=== PATIENT | male | born 1985 | race Caucasian/White ===

== ENCOUNTER 2021-06-05 14:47 | Emergency (ER) | payer BC, OTHER ==
[~2021-06-05] VITALS: Ht 170.2 cm; Wt 59.0 kg
[2021-06-05 14:56] VITALS: BP 114/78
[2021-06-05] MEDS ORDERED: PROMETH-CODEIN 65 ML PO ×2 (16:12→16:27)
[2021-06-05] MEDS ORDERED: PREDNISONE 20 M20 MG PO ×2 (16:12→16:27)
[2021-06-05] MEDS ORDERED: XOPENEX HFA15 GM INH ×2 (16:12→16:27)
== END 2021-06-05 16:36 | disposition home or self-care (01) ==
LOC: ER 14:47
DX: U07.1 COVID-19 (principal); J45.909 Unspecified asthma, uncomplicated; Z91.040 Latex allergy status

== ENCOUNTER 2021-06-09 11:03 | Inpatient (IN) | payer BC, OTHER ==
[~2021-06-09] VITALS: Ht 167.6 cm; Wt 64.9 kg
--- NOTE | ~2021-06-09 | HC ---
[facility] [place] [address] CONSULTATION Name: MONROE ORLANDO Room #: 357-P ADM IN M.R.#: [id number] Admission: 06/09/21 Attend Phys: Anurag Domínguez MD Discharge: Date of : 81 Report #: [id number] THIS REPORT FOR: cc: DOMINIQUE - Family physician unknown FAM - Family physician unknown Guy Scales MD ~ DATE OF SERVICE: 06/09/2021 HISTORY OF PRESENT ILLNESS: This 35-year-old male patient who was evaluated by me for speech difficulty. This patient was discussed with the emergency room provider and subsequently, I discussed the patient with Dr. Domínguez, who is going to be admitting physician. I saw this patient briefly because he was going for MRI. I will see him tomorrow and complete the consult. He gives a history that on Saturday, he started having speech difficulty. His speech difficulty is pretty unusual. It does not can fit into dysarthria or typical aphasia. He apparently was also having chest pain. REVIEW OF SYSTEMS: Negative for anxiety or depression in this patient. He says he has fatigue and myalgias and he was diagnosed COVID about 8 days ago. He does not believe he has become anxious because of that. He is on prednisone. He does not give any history suggestive of myasthenia in the past. He does not appear to be having any respiratory difficulty. That was his relevant 14-point review of system. PAST MEDICAL HISTORY: Positive for recent diagnosis of COVID. Rest of the history, I will take tomorrow. SOCIAL HISTORY: Indicated that he does chew tobacco. PHYSICAL EXAMINATION: When I examined him, he was talking, but very unusual talking, which was not typical of dysarthria or dysphasia or aphasia. He appeared to be oriented and I did not examine him because he was going for MRI. CT scan was unremarkable, so I have recommended an MRI. I reviewed that MRI and MRA and they are pretty much unremarkable. We did MRI instead of CT because contrast was already used to do the PE protocol. I had asked him to order ultrasound of the carotid, but I do not see an order and output from him. IMPRESSION: This patient has a very unusual type of talking. He denies any history of anxiety. I will check for myasthenia markers, but with his normal MRI, it is difficult to explain his speech difficulty. I will complete the consult tomorrow and talked to other health care provider tomorrow. By: 10 0036 Guy Scales MD /nt
[~2021-06-09 11:03] MED LIST: PREDNISONE 20 M20 MG PO; PROMETH-CODEIN 65 ML PO; XOPENEX HFA15 GM INH
[2021-06-09 11:11] VITALS: BP 109/69
[2021-06-09 12:55] LABS: ABSOLUTE NEUTROPHILS 3.4 thou/uL (1.4-8.2); BASOPHILS 0.3 % (0.0-2.0); EOSINOPHILS 0.6 % (0.0-3.0); HEMOGLOBIN 15.3 gm/dL (14.0-18.0); LYMPHOCYTES 19.2 % (24.0-44.0); MCH 28.8 pg (26.0-34.0); MCV 84.7 fL (80.0-100.0); MONOCYTES 14.7 % (1.0-8.0); PLATELET COUNT 188 thou/uL (150-400); POLYS 65.2 % (36.0-66.0); RBC 5.31 mil/uL (4.50-6.00); WBC 5.2 thou/uL (4.0-11.0)
[2021-06-09 13:04] LABS: ANION GAP 5 mmol/L (7-16); BUN 16 mg/dL (7-18); CALCIUM 8.7 mg/dL (8.5-10.1); CHLORIDE 103 mmol/L (98-107); CO2 30 mmol/L (21-32); GLUCOSE 86 mg/dL (74-106); POTASSIUM 4.3 mmol/L (3.5-5.1); SODIUM 138 mmol/L (136-145)
[2021-06-09 13:14] LABS: ALBUMIN 3.6 g/dL (3.4-5.0); SGOT 18 U/L (15-37); SGPT 20 U/L (30-65); TOTAL BILIRUBIN 0.4 mg/dL (0.2-1.0); TOTAL PROTEIN 7.4 g/dL (6.4-8.2); TROPONIN-I <0.06 ng/mL (<0.06)
[2021-06-09 16:52] VITALS: BP 109/69
[2021-06-09] MEDS ORDERED: PREDNISONE 20 M20 M1 PO (18:18)
[2021-06-09] MEDS ORDERED: PROMETHAZINE-C473 ML PO (18:18)
[2021-06-09 18:19] VITALS: BP 124/75
[2021-06-09 20:20] VITALS: BP 114/69
[2021-06-09 20:50] VITALS: BP 117/78
[2021-06-09] MEDS ORDERED: DORYX MPC120 MG PO (21:00)
[2021-06-09 23:47] LABS: APTT 27.9 Seconds (24.5-32.8); INR 0.94; PROTIME 10.3 Seconds (10.5-12.1)
[2021-06-10 00:10] VITALS: BP 113/67
[2021-06-10 04:35] VITALS: BP 112/61
[2021-06-10 09:12] LABS: ABSOLUTE NEUTROPHILS 3.3 thou/uL (1.4-8.2); BASOPHILS 0.2 % (0.0-2.0); HEMATOCRIT 42.2 % (42.0-52.0); HEMOGLOBIN 14.7 gm/dL (14.0-18.0); MCH 28.9 pg (26.0-34.0); MCHC 34.8 g/dL (28.0-37.0); PLATELET COUNT 207 thou/uL (150-400); POLYS 74.8 % (36.0-66.0); RBC 5.08 mil/uL (4.50-6.00); RDW 13.5 % (10.5-14.5); WBC 4.5 thou/uL (4.0-11.0)
[2021-06-10 09:15] LABS: CALCIUM 8.5 mg/dL (8.5-10.1); CREATININE 0.9 mg/dL (0.7-1.3); MAGNESIUM 2.3 mg/dL (1.8-2.4); POTASSIUM 4.8 mmol/L (3.5-5.1)
[2021-06-10 09:21] LABS: CHOLESTEROL 177 mg/dL (<200); HDL CHOLESTEROL 52 mg/dL (>40); LDL CHOLESTEROL 111 mg/dL (<100); TC:HDL 3.4 Ratio (Not establshd); TRIGLYCERIDE 71 mg/dL (<150); VLDL 14 mg/dL (<40)
--- NOTE | 2021-06-10 10:36 | EKG ---
[address] [employer] [place] [address] ELECTROCARDIOGRAM REPORT Name: MONROE ORLANDO Room #: 357-P ADM IN M.R.#: [id number] Admission: 06/09/21 Attend Phys: Anurag Domínguez MD Discharge: Date of : 81 Report #: [id number] [facility] ED Test Date: 2021-06-09 Test Time: 11:10:33 Pat Name: MONROE ORLANDO Department: Room: 357 Gender: M Materials Assistant: JCSONIA : 1985 Requested By: Naida Millard Order Number: [id number] MD: Skip Jean Measurements Intervals [place] Rate: 60 P: 42 SC: 154 QRS: 57 QRSD: 96 T: 30 QT: 398 QTc: 398 Interpretive Statements Sinus rhythm Normal tracing No previous ECG available for comparison Electronically Signed On 06-10-2021 10:36:30 CDT by Skip Jean [email or web address] <ELECTRONICALLY SIGNED> By: Skip Jean MD, [facility] 06/10/21 1036 1110 1110 Skip Jean MD, FACC /EPI
[2021-06-10 15:43] VITALS: BP 118/69
[2021-06-10 20:58] VITALS: BP 121/80
--- NOTE | 2021-06-11 05:02 | HC ---
[facility] [place] [address] CONSULTATION Name: MONROE ORLANDO Room #: 357- ADM IN M.R.#: [id number] Admission: 06/09/21 Attend Phys: Anurag Domínguez MD Discharge: Date of : 81 Report #: [id number] THIS REPORT FOR: cc: FAM - Family physician unknown FAM - Family physician unknown Edwar Aguilar MD ~ DATE OF SERVICE: 06/10/2021 INFECTIOUS DISEASE CONSULTATION ATTENDING PHYSICIAN: Dr. Domínguez. REASON FOR EVALUATION: COVID-19 infection as well as concomitant expressive aphasia. HISTORY OF PRESENT ILLNESS: Chart reviewed. The patient examined. This is a 35-year-old man with history of asthma, possibly schizoaffective disorder, who was diagnosed with COVID-19 infection roughly 10 days ago. He had experienced some mild dyspnea, myalgias. He was discharged from the ER on the , he returned on the with speech disturbances and difficulty speaking. Due to concerns about possible COVID relating to his illness, he was admitted. Imaging thus far has been unremarkable including CT of the head as well as MRI studies, no evidence of PE on chest CT. Did have peripheral ground glass opacities consistent with the COVID, but apparently he has not had any fevers. Denies chills. Appetite has been fair. Denies swallowing difficulties. It is notable he has been on doxycycline, treating chlamydia. UA is question of possible adverse drug effect. He is generally lucid. He is maintained on room air. ALLERGIES: LISTED TO LATEX AND MENTHOL. CURRENT MEDICATIONS: Include pantoprazole, zinc, cholecalciferol, ascorbic acid, enoxaparin, dexamethasone, ondansetron, doxycycline, aspirin. PAST MEDICAL HISTORY: As described above, asthma, schizoaffective disorder. SOCIAL HISTORY: History of illicit drug use, chews tobacco. No ethanol. FAMILY HISTORY: Noncontributory. REVIEW OF SYSTEMS: Otherwise, unremarkable. PHYSICAL EXAMINATION: GENERAL: He is alert, cooperative. Clearly he has some speech difficulties in terms of mechanics of speech. He seems to know what he wants to say but just having difficulty saying it. Appears reasonable well nourished. VITAL SIGNS: Temperature 97.9, pulse 51, respirations 16, blood pressure [facility] [address] [place] [address] CONSULTATION Name: MONROE ORLANDO Room #: [address] [place] [address] IN M.R.#: [id number] Admission: 06/09/21 Attend Phys: Anurag Domínguez MD Discharge: Date of : 81 Report #: [id number] 112/61. SKIN: Warm, dry, no rashes. HEENT: Again, normocephalic. Extraocular muscles intact. NECK: Supple. LUNGS: Generally clear to auscultation. HEART: Regular. I do not appreciate a murmur, borderline bradycardic. ABDOMEN: Soft, nontender, nondistended. EXTREMITIES: No cyanosis. GENITOURINARY AND RECTAL: Deferred. LABORATORY DATA: Most recent CBC: White count 4.5, H and H 14.7 and 42.2, platelets of 207. He is having lymphocytopenia. Electrolytes: Sodium 140, potassium 4.8, chloride 103, bicarbonate 26, anion gap of 11, BUN and creatinine 16 and 0.9, glucose of 105. MRI of the head is otherwise unremarkable. Additional studies: Again, the vasculature MRV was otherwise unremarkable as was the MRI of the [place]. CT as described above. Liver functions otherwise unremarkable. Albumin 3.6, total protein of 7.4. ASSESSMENT AND PLAN: COVID-19 infection, complicated by pneumonitis, although not appreciate respiratory failure; also has aphasia of unclear etiology, whether this is a direct result of a viral infection or perhaps secondary to adverse drug effect. I think it is reasonable given directed therapy case it is a virus. We will utilize some remdesivir and ivermectin in addition to the corticosteroids and vitamins. We will discontinue the doxycycline, perhaps repeat the chlamydia test. When he is better able to talk we get additional history in terms of any previous testing for HIV. <ELECTRONICALLY SIGNED> By: Edwar Aguilar MD 06/11/21 0502 0846 1514 Edwar Aguilar MD /nt
[2021-06-11 05:26] VITALS: BP 115/71
[2021-06-11 06:31] LABS: DIRECT BILIRUBIN < 0.1 mg/dL (<0.1-0.2); SGOT 15 U/L (15-37); SGPT 25 U/L (30-65); TOTAL BILIRUBIN 0.2 mg/dL (0.2-1.0); TOTAL PROTEIN 6.4 g/dL (6.4-8.2)
[2021-06-11 07:27] VITALS: BP 122/78
[2021-06-11 11:10] VITALS: BP 116/70
[2021-06-11 15:27] VITALS: BP 106/66
[2021-06-11 20:13] VITALS: BP 115/68
[2021-06-12 03:58] VITALS: BP 118/72
[2021-06-12 06:08] LABS: ALBUMIN 3.4 g/dL (3.4-5.0); DIRECT BILIRUBIN < 0.1 mg/dL (<0.1-0.2); SGOT 17 U/L (15-37); SGPT 24 U/L (30-65); TOTAL BILIRUBIN 0.2 mg/dL (0.2-1.0)
[2021-06-12 07:19] VITALS: BP 111/67
[2021-06-12 13:29] LABS: CSF CLARITY CLOUDY; VOLUME 11 ml
[2021-06-12 13:30] LABS: CSF RBC 612 /mm3
[2021-06-12 13:33] LABS: CSF GLUCOSE 60 mg/dL (40-70); CSF PROTEIN 52 mg/dL (15-45)
[2021-06-12 14:41] LABS: CSF LYMPHOCYTES 44 % (40-80); CSF POLYS 54 %
[2021-06-12 14:42] LABS: CSF WBC 17 /mm3 (0-10)
[2021-06-12 15:24] VITALS: BP 115/63
[2021-06-12 20:13] VITALS: BP 115/74
[2021-06-12 22:28] VITALS: BP 115/71
[2021-06-12 23:06] LABS: SYPHILIS AB Non Reactive (Non Reactive)
[2021-06-13 01:06] LABS: SERUM ALBUMIN 3.8 g/dL (4.0-5.0)
[2021-06-13 02:41] VITALS: BP 117/72
[2021-06-13 03:24] LABS: ALBUMIN 3.2 g/dL (3.4-5.0); CREATININE 0.9 mg/dL (0.7-1.3); DIRECT BILIRUBIN < 0.1 mg/dL (<0.1-0.2); SGOT 24 U/L (15-37); SGPT 45 U/L (30-65); TOTAL BILIRUBIN 0.2 mg/dL (0.2-1.0)
[2021-06-13 04:28] VITALS: BP 128/69
[2021-06-13 07:51] VITALS: BP 119/75
[2021-06-13 15:54] VITALS: BP 119/68
[2021-06-13 19:42] VITALS: BP 128/76
[2021-06-14 03:29] LABS: ALBUMIN 3.1 g/dL (3.4-5.0); DIRECT BILIRUBIN < 0.1 mg/dL (<0.1-0.2); SGOT 25 U/L (15-37); SGPT 47 U/L (30-65); TOTAL BILIRUBIN 0.2 mg/dL (0.2-1.0); TOTAL PROTEIN 6.3 g/dL (6.4-8.2)
[2021-06-14 04:20] VITALS: BP 120/70
[2021-06-14 07:31] VITALS: BP 116/76
[2021-06-14 08:19] VITALS: BP 128/66
[2021-06-14 15:21] VITALS: BP 108/61
[2021-06-14 20:00] VITALS: BP 115/66
[2021-06-15 04:59] VITALS: BP 98/59
[2021-06-15 07:10] VITALS: BP 114/58
[2021-06-15 09:08] LABS: HSV 1 DNA Negative (Negative); HSV 2 DNA Negative (Negative)
[2021-06-15 09:32] LABS: HEMATOCRIT 42.4 % (42.0-52.0); HEMOGLOBIN 14.6 gm/dL (14.0-18.0); MCH 28.5 pg (26.0-34.0); MCHC 34.5 g/dL (28.0-37.0); MCV 82.7 fL (80.0-100.0); RBC 5.13 mil/uL (4.50-6.00); RDW 13.5 % (10.5-14.5); WBC 6.8 thou/uL (4.0-11.0)
[2021-06-15 09:45] LABS: CALCIUM 8.6 mg/dL (8.5-10.1); CREATININE 1.1 mg/dL (0.7-1.3)
[2021-06-15 11:09] LABS: CSF IgG 3.2 mg/dL (0.0-10.3)
[2021-06-15 19:28] VITALS: BP 116/62
[2021-06-16 02:41] LABS: HEMOGLOBIN 13.4 gm/dL (14.0-18.0); MCH 28.2 pg (26.0-34.0); MCHC 34.3 g/dL (28.0-37.0); MCV 82.2 fL (80.0-100.0); RBC 4.74 mil/uL (4.50-6.00); RDW 13.4 % (10.5-14.5); WBC 17.7 thou/uL (4.0-11.0)
[2021-06-16 02:50] LABS: CALCIUM 7.9 mg/dL (8.5-10.1); POTASSIUM 4.1 mmol/L (3.5-5.1)
[2021-06-16 05:00] VITALS: BP 106/62
[2021-06-16 07:56] VITALS: BP 119/75
[2021-06-16 10:40] LABS: HSV PCR SOURCE CSF
[2021-06-16] MEDS ORDERED: VITAMINC500 PO (13:55)
[2021-06-16] MEDS ORDERED: NEURONTIN 300M300 M2 PO (13:55)
[2021-06-16] MEDS ORDERED: VITAMIN D325 MC1 PO (13:55)
[2021-06-16] MEDS ORDERED: PREDNISONE 10 M10 M1 PO (13:55)
[2021-06-16] MEDS ORDERED: WORK RELEASE (13:57)
[2021-06-16 14:08] VITALS: BP 119/75
[2021-06-16 14:45] VITALS: BP 119/75
[2021-06-16 14:46] VITALS: BP 119/75
== END 2021-06-16 14:52 | disposition home or self-care (01) | DRG 177 ==
LOC: ER 11:03 → 3W 16:41 → EROBS 16:41 → 3W 18:35
PROVIDERS: Nurse Practitioner; Nurse Practitioner Family; Psychiatry & Neurology Neuromuscular Medicine; Specialist; ADMIT Internal Medicine; ATTEND Internal Medicine
PROC: XW033E5 Introduction of Remdesivir Anti-infective into Peripheral Vein, Percutaneous Approach, New Technology Group 5 (ICD-10-PCS; principal; 2021-06-10)
PROC: B01B1ZZ Fluoroscopy of Spinal Cord using Low Osmolar Contrast (ICD-10-PCS; 2021-06-12)
PROC: 009U3ZX Drainage of Spinal Canal, Percutaneous Approach, Diagnostic (ICD-10-PCS; 2021-06-12)
DX: U07.1 COVID-19 (principal); J12.82 Pneumonia due to coronavirus disease 2019; R47.01 Aphasia; Z91.040 Latex allergy status; J45.909 Unspecified asthma, uncomplicated; Z88.8 Allergy status to other drugs, medicaments and biological substances
CPT/HCPCS: 10879; 62110; 62900

== ENCOUNTER 2021-07-02 17:04 | Inpatient (IN) | payer BC, OTHER ==
[~2021-07-02] VITALS: Ht 170.2 cm; Wt 65.8 kg
[~2021-07-02 17:04] MED LIST changes: +DORYX MPC120 MG PO; +NEURONTIN 300M300 M2 PO; +PREDNISONE 10 M10 M1 PO; +PREDNISONE 20 M20 M1 PO; +PROMETHAZINE-C473 ML PO; +VITAMIN D325 MC1 PO; +VITAMINC500 PO; +WORK RELEASE
[2021-07-02 17:06] VITALS: BP 129/60
[2021-07-02 17:25] LABS: BASOPHILS 0.7 % (0.0-2.0); EOSINOPHILS 3.7 % (0.0-3.0); HEMATOCRIT 43.2 % (42.0-52.0); HEMOGLOBIN 14.9 gm/dL (14.0-18.0); LYMPHOCYTES 29.6 % (24.0-44.0); MCH 29.1 pg (26.0-34.0); MCHC 34.5 g/dL (28.0-37.0); MCV 84.3 fL (80.0-100.0); MONOCYTES 13.1 % (1.0-8.0); PLATELET COUNT 197 thou/uL (150-400); POLYS 52.9 % (36.0-66.0); RBC 5.13 mil/uL (4.50-6.00); RDW 13.8 % (10.5-14.5); WBC 5.6 thou/uL (4.0-11.0)
[2021-07-02 17:30] LABS: CREATININE 1.2 mg/dL (0.7-1.3); POTASSIUM 3.8 mmol/L (3.5-5.1)
[2021-07-02 19:06] LABS: URINE BILIRUBIN NEGATIVE (Negative); URINE BLOOD NEGATIVE (Negative); URINE CLARITY CLEAR; URINE COLOR YELLOW; URINE GLUCOSE-RANDOM* NEGATIVE (Negative); URINE KETONES NEGATIVE (Negative); URINE LEUKOCYTES-REFLEX NEGATIVE (Negative); URINE NITRITE-REFLEX NEGATIVE (Negative); URINE PROTEIN (DIPSTICK) NEGATIVE (Negative); URINE SPECIFIC GRAVITY >= 1.030 (1.005-1.035); URINE UROBILINOGEN 0.2 E.U./dl (0.2-1.0)
[2021-07-02 19:10] LABS: AMP/METHAMP Negative (Negative); BARBITURATES Negative (Negative); BENZODIAZEPINES Negative (Negative); COCAINE Negative (Negative); METHADONE Negative (Negative); OPIATES Negative (Negative); PCP Negative (Negative)
--- NOTE | 2021-07-02 20:08 | NUR ---
ER GSE MECHANIC TALKED WITH DR ELAM, SHE IS AWARE OF PT AND ADMISSION
[2021-07-02 23:34] VITALS: BP 114/61
[2021-07-03 00:03] VITALS: BP 126/67
[2021-07-03 04:24] VITALS: BP 112/54
--- NOTE | 2021-07-03 05:21 | NUR ---
PT ARRIVED FROM ER TO ROOM 214, PT BROUGHT IN BY FAMILY, WITH SLURRED SPEECH AND LEFT SIDED WEAKNESS THAT HAS RESOLVED, VSS, NO C.O PAIN, WILL CON'T TO MONITOR PER PPOC.
--- NOTE | 2021-07-03 07:27 | EKG ---
[address] [place] [address] ELECTROCARDIOGRAM REPORT Name: MONROE ORLANDO Room #: 214- ADM IN M.R.#: [id number] Admission: 07/02/21 Attend Phys: Jeremi Castañeda MD Discharge: Date of : 81 Report #: [id number] [facility] ED Test Date: 2021-07-02 Test Time: 17:08:41 Pat Name: MONROE ORLANDO Department: Room: 214 Gender: M Labor Crew Supervisor: Char [place] : 1985 Requested By: Filemon Gutierrez Order Number: [id number] MD: Craig Sargent Measurements Intervals [place] Rate: 92 P: [place]: QRS: 71 QRSD: 109 T: 54 QT: 386 QTc: 478 Interpretive Statements NSR, artifact Paired ventricular premature complexes Borderline prolonged QT interval Artifact in lead(s) I,II,III,aVR,aVL,aVF,V1,V2,V4,V5,V6 Compared to ECG 06/09/2021 11:10:33 Ventricular premature complex(es) now present Electronically Signed On 07-03-2021 7:27:44 CDT by Craig Sargent [email or web address] <ELECTRONICALLY SIGNED> By: Craig Sargent MD, FAC 07/03/21 0727 170 170 Craig Sargent MD, [facility] /EPI
[2021-07-03 07:55] VITALS: BP 98/54
[2021-07-03 11:55] VITALS: BP 110/71
--- NOTE | 2021-07-03 14:15 | NUR ---
ASSESSMENT: CM REVIEWED CHART AND SPOKE WITH PATIENT VIA PHONE. PT WAS RECENTLY ADMITTED TO [facility] 06/09[facility]06[facility]16 AND HAS A PAST HX OF COVID 19 WELL LAST ADMISSION HAD COMPLAINTS OF WEAKNESS AND EXPRESSIVE APHASIA WHICH RESOLVED PRIOR TO DISCHARGE AND WORKUP WAS UNREMARKABLE. THIS ADMISSION PT IS COMPLAINING OF SIMILAR SYMPTOMS. NEUROLOGY HAS BEEN CONSULTED TO SEE PATIENT WELL THERAPIES. PT REPORTS THAT HE LIVES IN A HOUSE WITH HIS FAMILY (HIS FATHER AND HIS FATHERS SIGNIFICANT OTHER). PT REPORTS THAT HE HAS MADE HIS BEDROOM ON THE MAIN LEVEL SO HE WILL NOT HAVE TO USE ANY STEPS ONCE INSIDE. PT REPORTS ABOUT 4 STEPS TO ENTER THE HOME. PT REPORTS THAT HE HAS A CANE AT HOME BUT HAD NOT BEEN USING IT. PT REPORTS HE WAS INDEPENDENT WITH ADLS. NEUROLOGY HAS BEEN CONSULTED TO SEE PATIENT BUT IF NO FURTHER TESTING IS A POSSIBLE DISCHARGE HOME. PT DID WORK WITH THERAPY TODAY AND WAS ABLE TO WALK 80 FT MIN ASSIST WITH NO DEVICE. AWAITING NEUROLOGY INPUT AT THIS TIME AND SYMPTOMS MAY BE POSSIBLY PSYCHOGENIC IN NATURE. PT WILL LIKELY DISCHARGE HOME WITH NO NEEDS. CM WILL CONTINUE TO FOLLOW TO ASSIST NEEDED.
[2021-07-03 16:15] VITALS: BP 108/65
--- NOTE | 2021-07-03 18:17 | NUR ---
PT RESTING COMFORTABLY. CONTINUES TO HAVE SLIGHT EXPRESSIVE APHASIA. WORKED WITH PT/OT TODAY. PT AFEBRILE, ADEQUATE UOP, NO BM, APPROPRIATE APPETITE. NIH SCORE WAS 1 THROUGHOUT DAY. PT HAS BEEN THOUROUGHLY UPDATED AND EDUCATED ON PT CONDITION AND POC. PT PROGRESSING TOWARDS POC.
[2021-07-03 20:15] VITALS: BP 111/72
[2021-07-04 04:45] VITALS: BP 106/66
--- NOTE | 2021-07-04 05:15 | NUR ---
PATIENTS CARES WERE ASSUMED AT SHIFT CHANGE. PATIENT WAS ASSESSED AND MEDS WERE PASSED. PATIENT HAD SEVERAL EPISODES OF HIS HEART RATE DROPPING DOWN TO 35. PATIENT DENIES AND PAIN OR DISCOMFORT DURING THE LOW HEART RATE. PATIENT DID SLEEP APPROX EIGHT HOURS. ROUNDS WERE DONE. VITALS WERE STABLE THIS SHIFT. BED ALARM IS ON, THE BED IS IN A LOW AND LOCKED POSITION
[2021-07-04 07:40] VITALS: BP 95/52
[2021-07-04 11:23] VITALS: BP 95/52
[2021-07-04 11:25] VITALS: BP 114/72
--- NOTE | 2021-07-04 15:02 | NUR ---
assessment as charted - meds as per porfirio andrea diet and fluids. no co's of pain or nausea. pt seen by phys therapy and pt ambulating with the use of a walker. pt home this afternoon with walker. instruction re home meds/ care and follow up given to patient. stated understanding of inastruction given. no co's at time of discharge - left unit via wheelchair - home via pvt vehicle.
--- NOTE | 2021-07-05 12:22 | HC ---
[facility] [place] [address] CONSULTATION Name: MONROE ORLANDO Room #: 214-P [facility] IN M.R.#: [id number] Admission: 07/02/21 Attend Phys: Anurag Domínguez MD Discharge: 07/04/21 Date of : 81 Report #: [id number] THIS REPORT FOR: cc: FAM - Family physician unknown FAM - Family physician unknown Guy Scales MD ~ DATE OF SERVICE: 07/03/2021 HISTORY OF PRESENT ILLNESS: This is a 35-year-old male patient who was seen by me, the last time he was here. He had a pretty extensive workup and all the workup was unremarkable. He had speech difficulty, which does not fit into brainstem dysarthria or aphasia. He just talk in a very unusual fashion like a robot. He developed post-spinal headache, which was pretty significant and real and during that time all his speech difficulty disappeared. As soon as his headache was corrected by a patch, his speech difficulty reappeared again. Now, he came with other unusual symptoms. He had a lower body tremor, left-sided weakness and some speech difficulty as before. He had another CT angio and perfusion in the emergency room and that was entirely normal. I reviewed the physical therapy note and he gave them a history that he had a recent CVA, but there was really no evidence of CVA. Their note indicates that he walks with a rigid robot like stand, but he is able to walk. REVIEW OF SYSTEMS: A 14-point review of system was carried out again and basically had a history of COVID and had a speech difficulty for which there is no cause, which is apparent. So far, it is very unusual. PAST MEDICAL HISTORY: As described above. I have seen this patient before. SOCIAL HISTORY: He says he does not use any drugs and does not drink alcohol on a regular basis. PHYSICAL EXAMINATION: Indicates he is alert. He is responsive. He talks in the robot fashion. As far as examination is concerned, he moves his arms, legs, and face poorly, but he was apparently able to walk with the therapist. His reflexes are symmetrical. His both plantars are mute. He says that he can feel it on both sides and looks like it is symmetrical. He had another CT angiogram and CT in the emergency room and that was entirely normal. IMPRESSION AND RECOMMENDATION: Very difficult to form in this patient as we have not found any organic etiology for the patient's symptoms and the patient's symptoms are very unusual. Because of that psychogenic diagnosis need to be considered. Even mentioned of psychogenic diagnosis made the patient very angry and he wanted to go to another hospital. Whenever we make a psychogenic diagnosis, we can be wrong, but my suggestion in this patient is that we should have a psychiatric consult and if they think it [address] [address] CONSULTATION Name: MONROE ORLANDO Room #: 214-P DIS IN M.R.#: [id number] Admission: 07/02/21 Attend Phys: Anurag Domínguez MD Discharge: 07/04/21 Date of : 81 Report #: [id number] appeared to be psychogenic diagnosis, then they can treat accordingly. If they do not feel it is a psychogenic diagnosis, then we can repeat some of those testing in this patient. The patient also appeared to be pretty unhappy and want to go because he does not think we have established the diagnosis with certainty and I told him that it is the fact. If he wants to go or wants to go to another hospital that is his choice. If he is here, then I will suggest getting a psychiatric consult and depending upon rather what psychiatrist says move further. If psychiatrist thing is a psychiatric diagnosis, we should proceed with the management of that, but if they think that is not the case, then I think we can do some more workup. Thank you very much for this referral and if you have any questions, please feel free to contact me. <ELECTRONICALLY SIGNED> By: Guy Scales MD 07/05/21 1222 1406 [id number] Guy Scales MD /nt
== END 2021-07-04 14:45 | disposition home or self-care (01) | DRG 93 ==
LOC: ER 17:04 → 2N 20:08 → EROBS 20:08 → 2N 23:49
PROVIDERS: Nurse Practitioner; ADMIT Internal Medicine; ATTEND Internal Medicine
DX: F80.81 Childhood onset fluency disorder (principal); J45.909 Unspecified asthma, uncomplicated; Z88.8 Allergy status to other drugs, medicaments and biological substances; F17.210 Nicotine dependence, cigarettes, uncomplicated; Z91.040 Latex allergy status; Z86.16 Personal history of COVID-19; Z87.01 Personal history of pneumonia (recurrent); Z20.822 Contact with and (suspected) exposure to COVID-19
CPT/HCPCS: 10081